=== PATIENT | male | born 1980 | race Caucasian/White ===

== ENCOUNTER 2017-11-26 07:37 | Inpatient (IN) | payer BC, OTHER ==
[~2017-11-26] VITALS: Ht 182.9 cm; Wt 113.4 kg
[2017-11-26] MEDS ORDERED: DICYCLOMINE HCL 20 MG TABLET PO PRN (11:15)
[2017-11-26] MEDS ORDERED: MIRALAX 17 GM POWD.PACK PO PRN (11:15)
[2017-11-26] MEDS ORDERED: ONDANSETRON ODT 4 MG TAB.RAPDIS SL PRN (11:15)
[2017-11-26] MEDS ORDERED: ACETAMINOPHEN 325 MG TABLET PO PRN (11:15)
[2017-11-26] MEDS ORDERED: LOPERAMIDE HCL 2 MG CAPSULE PO PRN ×2 (11:15)
[2017-11-26] MEDS ORDERED: LORAZEPAM 1 MG TABLET PO PRN ×2 (11:15)
[2017-11-26] MEDS ORDERED: THIAMINE HCL 200 MG/2 ML VIAL IM ONE (11:15)
[2017-11-26] MEDS ORDERED: ONDANSETRON 4 MG/2 ML VIAL IM PRN (11:15)
[2017-11-26] MEDS ORDERED: IBUPROFEN 400 MG TABLET PO PRN (11:15)
[2017-11-26] MEDS ORDERED: NICOTINE 14 MG/24HR PATCH TD PRN (11:15)
[2017-11-26] MEDS ORDERED: LORAZEPAM 2 MG/1 ML VIAL IM PRN (11:15)
[2017-11-26] MEDS ORDERED: MAGNESIUM HYDROXIDE 30 ML LIQUID UDC PO PRN (11:15)
[2017-11-26] MEDS ORDERED: OMEP20TA5 PO (11:16)
[2017-11-26] MEDS ORDERED: OLME40TA12 PO (11:16)
[2017-11-26] MEDS ORDERED: FOLI1TAB16 PO (11:16)
[2017-11-26] MEDS ORDERED: TRIA80OI TP (11:16)
[2017-11-26] MEDS ORDERED: MULT-465 PO (11:16)
[2017-11-26] MEDS ORDERED: ESCI10TA55 PO (11:16)
[2017-11-26] MEDS ORDERED: NIAC500T2 PO (11:16)
[2017-11-26] MEDS ORDERED: [UNRECOGNIZED DRUG - OTHER] (11:19)
[2017-11-26 12:00] VITALS: BP 163/120
[2017-11-26] MEDS: CLONIDINE HCL 0.1 MG TABLET PO PRN ×2 (12:25→20:04)
[2017-11-26] MEDS: LORAZEPAM 1 MG TABLET PO SCH ×3 (12:26→20:04)
[2017-11-26 13:39] LABS: *AMPHETAMINE, URINE NEGATIVE (NEGATIVE); *BARBITURATE, URINE NEGATIVE (NEGATIVE); *CANNABINOID, URINE NEGATIVE (NEGATIVE); *COCCAINE, URINE NEGATIVE (NEGATIVE); *OPIATE, URINE NEGATIVE (NEGATIVE); *PHENCYCLIDINE SCREEN,URINE NEGATIVE (NEGATIVE)
[2017-11-26 13:41] LABS: BASOPHILS # (AUTO) 0.1 K/uL (0.0-8.0); BASOPHILS % (AUTO) 1.2 % (0.0-2.0); EOSINOPHILS % (AUTO) 0.8 % (0.0-7.0); HEMATOCRIT 45.1 % (36.7-47.1); HEMOGLOBIN 15.4 g/dL (12.5-16.3); LYMPHOCYTES # (AUTO) 1.4 K/uL (20.0-40.0); LYMPHOCYTES % (AUTO) 22.5 % (20.5-51.5); MEAN CORPUSCULAR HEMOGLOBIN 33.4 uug (23.8-33.4); MEAN CORPUSCULAR HGB CONC 34 g/dL (32.5-36.3); MONOCYTES # (AUTO) 0.6 K/uL (2.0-10.0); MONOCYTES % (AUTO) 9.8 % (0.0-11.0); NEUTROPHILS # (AUTO) 4.1 K/uL (1.8-8.9); NEUTROPHILS % (AUTO) 65.7 % (38.5-71.5); PLATELET COUNT (AUTO) 253 K/uL (152-348); WHITE BLOOD COUNT (AUTO) 6.2 K/uL (3.6-10.2)
[2017-11-26 13:48] LABS: ALANINE AMINOTRANSFERASE 32 U/L (16-63); ALKALINE PHOSPHATASE 77 U/L (50-136); AMYLASE 31 U/L (25-115); ASPARTATE AMINOTRANSFERASE 22 U/L (15-37); BILIRUBIN,TOTAL 0.8 mg/dL (0.2-1.0); CARBON DIOXIDE 29 mmol/L (21-32); CHLORIDE 98 mmol/L (98-107); GLUCOSE 146 mg/dL (74-106); POTASSIUM 4.1 mmol/L (3.5-5.1); TOTAL PROTEIN, SERUM 7.9 g/dL (6.4-8.2); UREA NITROGEN, BLOOD 16 mg/dL (7-18)
[2017-11-26 14:00] LABS: ETHANOL < 3 MG/DL (0-0)
[2017-11-26] MEDS: ESCITALOPRAM OXALATE 10 MG TABLET PO SCH (14:11)
[2017-11-26 16:00] VITALS: BP 146/106
[2017-11-26] MEDS: hydrALAZINE HCL 50 MG TABLET PO PRN (17:35)
[2017-11-26 20:00] VITALS: BP 164/103
[2017-11-26 20:52] VITALS: BP 136/98
[2017-11-26] MEDS: diphenhydrAMINE 50 MG CAPSULE PO PRN (21:04)
[2017-11-27 00:20] VITALS: BP 126/85
[2017-11-27 04:15] VITALS: BP 135/87
[2017-11-27 08:00] VITALS: BP 154/108
[2017-11-27 08:06] LABS: HEPATITIS B SURFACE AG Negative (Negative)
[2017-11-27] MEDS ORDERED: TUBERCULIN,PURIF.PROT.DERIV. 5 TU/0.1 ML TEST ID ONE (09:00)
[2017-11-27] MEDS: THIAMINE HCL 100 MG TABLET PO SCH (09:09)
[2017-11-27] MEDS: MULTIVITAMINS,THERAPEUTIC TABLET PO SCH (09:09)
[2017-11-27] MEDS: ESCITALOPRAM OXALATE 10 MG TABLET PO SCH (09:09)
[2017-11-27] MEDS: FOLIC ACID 1 MG TABLET PO SCH (09:09)
[2017-11-27] MEDS: OLMESARTAN 40MG PO SCH (09:09)
[2017-11-27] MEDS: LORAZEPAM 1 MG TABLET PO SCH ×2 (09:09→12:08)
[2017-11-27] MEDS ORDERED: HYDROXYZINE PAMOATE 25 MG CAPSULE PO PRN (10:30)
[2017-11-27] MEDS ORDERED: TRIAMCINOLONE ACETONIDE 0.1% OINTMENT TOP PRN (11:15)
[2017-11-27 12:00] VITALS: BP 127/99
[2017-11-27] MEDS: CLONIDINE HCL 0.1 MG TABLET PO PRN ×2 (12:17→21:42)
[2017-11-27 16:00] VITALS: BP 136/84
[2017-11-27] MEDS: NICOTINE POLACRILEX 4 MG GUM-PK OF TEN BC PRN (16:50)
[2017-11-27] MEDS ORDERED: LORAZEPAM 1 MG TABLET PO SCH ×2 (17:00→21:00)
[2017-11-27 20:00] VITALS: BP 142/95
[2017-11-27] MEDS: diphenhydrAMINE 50 MG CAPSULE PO PRN (22:18)
[2017-11-28] VITALS: BP 126/88
[2017-11-28 08:00] VITALS: BP 142/94
[2017-11-28] MEDS: MULTIVITAMINS,THERAPEUTIC TABLET PO SCH (08:56)
[2017-11-28] MEDS: THIAMINE HCL 100 MG TABLET PO SCH (08:56)
[2017-11-28] MEDS: LORAZEPAM 1 MG TABLET PO SCH ×3 (08:57→20:19)
[2017-11-28] MEDS: ESCITALOPRAM OXALATE 10 MG TABLET PO SCH (08:57)
[2017-11-28] MEDS: FOLIC ACID 1 MG TABLET PO SCH (08:57)
[2017-11-28] MEDS: OLMESARTAN 40MG PO SCH (08:57)
[2017-11-28] MEDS ORDERED: LORAZEPAM 1 MG TABLET PO PRN ×2 (11:30)
[2017-11-28 12:00] VITALS: BP 134/88
[2017-11-28] MEDS: NICOTINE POLACRILEX 4 MG GUM-PK OF TEN BC PRN (12:27)
[2017-11-28 16:00] VITALS: BP 136/103
[2017-11-28] MEDS: hydrALAZINE HCL 50 MG TABLET PO PRN (16:44)
[2017-11-28 20:00] VITALS: BP 151/107
[2017-11-28] MEDS: CLONIDINE HCL 0.1 MG TABLET PO SCH (20:19)
[2017-11-28 21:19] VITALS: BP 143/86
[2017-11-28] MEDS: diphenhydrAMINE 50 MG CAPSULE PO PRN (22:09)
[2017-11-29] VITALS: BP 123/80
[2017-11-29 08:00] VITALS: BP 122/82
[2017-11-29] MEDS: ESCITALOPRAM OXALATE 10 MG TABLET PO SCH (08:43)
[2017-11-29] MEDS: FOLIC ACID 1 MG TABLET PO SCH (08:43)
[2017-11-29] MEDS: THIAMINE HCL 100 MG TABLET PO SCH (08:43)
[2017-11-29] MEDS: LORAZEPAM 1 MG TABLET PO SCH ×2 (08:43→22:08)
[2017-11-29] MEDS: OLMESARTAN 40MG PO SCH (08:43)
[2017-11-29] MEDS: MULTIVITAMINS,THERAPEUTIC TABLET PO SCH (08:43)
[2017-11-29] MEDS: CLONIDINE HCL 0.1 MG TABLET PO SCH ×2 (08:43→21:00)
[2017-11-29 12:00] VITALS: BP 140/90
[2017-11-29] MEDS ORDERED: PATIENT MAY USE OWN MED- MD OK PO PRN (13:00)
[2017-11-29] MEDS ORDERED: DIPH50CA37 PO (15:50)
[2017-11-29] MEDS ORDERED: CLON0.1T14 PO (15:50)
[2017-11-29] MEDS ORDERED: HYDR-3895 PO (15:50)
[2017-11-29 16:00] VITALS: BP 143/98
[2017-11-29] MEDS: MAG HYDROX/AL HYDROX/SIMETH 30 ML LIQUID UDC PO PRN (22:23)
[2017-11-29] MEDS: diphenhydrAMINE 50 MG CAPSULE PO PRN (22:23)
[2017-11-29 22:37] VITALS: BP 145/105
[2017-11-30 01:25] VITALS: BP 145/105
[2017-11-30 04:05] VITALS: BP 145/105
[2017-11-30 08:00] VITALS: BP 130/92
[2017-11-30] MEDS: OLMESARTAN 40MG PO SCH (08:17)
[2017-11-30] MEDS: FOLIC ACID 1 MG TABLET PO SCH (08:17)
[2017-11-30] MEDS: CLONIDINE HCL 0.1 MG TABLET PO SCH ×2 (08:17→20:21)
[2017-11-30] MEDS: MULTIVITAMINS,THERAPEUTIC TABLET PO SCH (08:17)
[2017-11-30] MEDS: THIAMINE HCL 100 MG TABLET PO SCH (08:17)
[2017-11-30] MEDS: ESCITALOPRAM OXALATE 10 MG TABLET PO SCH (08:17)
[2017-11-30] MEDS ORDERED: LORAZEPAM 1 MG TABLET PO SCH (09:00)
[2017-11-30 12:00] VITALS: BP 142/87
[2017-11-30] MEDS: MAG HYDROX/AL HYDROX/SIMETH 30 ML LIQUID UDC PO PRN (14:53)
[2017-11-30 16:00] VITALS: BP 140/98
[2017-11-30 21:56] VITALS: BP 155/117
[2017-12-01 00:06] VITALS: BP 155/117
[2017-12-01 04:30] VITALS: BP 142/88
[2017-12-01 08:00] VITALS: BP 134/88
[2017-12-01 08:40] VITALS: BP 134/88
[2017-12-01] MEDS: ESCITALOPRAM OXALATE 10 MG TABLET PO SCH (08:40)
[2017-12-01] MEDS: CLONIDINE HCL 0.1 MG TABLET PO SCH (08:40)
[2017-12-01] MEDS: MULTIVITAMINS,THERAPEUTIC TABLET PO SCH (08:40)
[2017-12-01] MEDS: THIAMINE HCL 100 MG TABLET PO SCH (08:40)
[2017-12-01] MEDS: FOLIC ACID 1 MG TABLET PO SCH (08:40)
[2017-12-01] MEDS: OLMESARTAN 40MG PO SCH (08:40)
== END 2017-12-01 09:35 | disposition other institution (70) | DRG 895 ==
LOC: SRC 10:07
PROVIDERS: ADMIT Internal Medicine; ATTEND Internal Medicine
PROC: HZ2ZZZZ Detoxification Services for Substance Abuse Treatment (ICD-10-PCS; principal; 2017-11-26)
PROC: HZ41ZZZ Group Counseling for Substance Abuse Treatment, Behavioral (ICD-10-PCS; principal; 2017-11-26)
PROC: HZ31ZZZ Individual Counseling for Substance Abuse Treatment, Behavioral (ICD-10-PCS; 2017-11-28)
DX: F10.230 Alcohol dependence with withdrawal, uncomplicated (principal); I15.9 Secondary hypertension, unspecified; K70.9 Alcoholic liver disease, unspecified; E87.1 Hypo-osmolality and hyponatremia; E78.5 Hyperlipidemia, unspecified; Y90.0 Blood alcohol level of less than 20 mg/100 ml; F41.9 Anxiety disorder, unspecified; G47.00 Insomnia, unspecified; Z82.49 Family history of ischemic heart disease and other diseases of the circulatory system; Z81.1 Family history of alcohol abuse and dependence; F17.220 Nicotine dependence, chewing tobacco, uncomplicated; F13.90 Sedative, hypnotic, or anxiolytic use, unspecified, uncomplicated; E86.0 Dehydration; R73.9 Hyperglycemia, unspecified; F12.90 Cannabis use, unspecified, uncomplicated
CPT/HCPCS: 36415; 70030-TC; 80307; 83735; 85025; 86580; 86592; 86705; 86803; 87340; 87806; A4663; G0480; J3411; Q0163